=== PATIENT | male | born 1950 | race Caucasian/White ===

== ENCOUNTER 2019-02-16 06:47 | Inpatient (IN) | payer MEDICARE, BC ==
[2019-02-09 15:15] LABS: BASOPHILS % (AUTO) 0.4 % (0-1); EOSINOPHILS # (AUTO) 0.2 X10'3 (0-0.9); EOSINOPHILS % (AUTO) 2.1 % (0-6); LYMPHOCYTES # (AUTO) 2.3 X10'3 (1.1-4.8); LYMPHOCYTES % (AUTO) 28.5 % (21-51); MEAN CORPUSCULAR HEMOGLOBIN 31.4 PG (27.0-31.0); MEAN CORPUSCULAR HGB CONC 34.7 g/dL (33.0-36.5); MEAN CORPUSCULAR VOLUME 90.5 FL (78-98); MEAN PLATELET VOLUME 8.5 FL (7.4-10.4); MONOCYTES # (AUTO) 0.8 X10'3 (0-0.9); MONOCYTES % (AUTO) 9.5 % (2-12); NEUTROPHILS # (AUTO) 4.8 X10'3 (1.8-7.7); NEUTROPHILS % (AUTO) 59.5 % (42-75); PRE OP HEMATOCRIT 45.8 % (42.0-52.0); PRE OP HEMOGLOBIN 15.9 g/dL (14.0-17.9); PRE OP PLATELET COUNT 275 X10'3 (140-440); RED BLOOD COUNT 5.06 X10'6 (4.70-6.10); RED CELL DISTRIBUTION WIDTH 12.9 % (11.5-14.5)
[2019-02-09 15:29] LABS: PRE OP PROTIME 10.1 SECONDS (9.0-12.0)
[2019-02-09 15:36] LABS: ALBUMIN 4.2 G/DL (3.4-5.0); ALBUMIN/GLOBULIN RATIO 1.1 (1.1-1.5); ALKALINE PHOSPHATASE 72 IU/L (46-116); BLOOD UREA NITROGEN 21 MG/DL (7-18); BUN/CREATININE RATIO 19.3 (5.4-32.0); CHLORIDE 101 MMOL/L (99-107); CREATININE 1.09 MG/DL (0.60-1.10); PRE OP ALT 29 U/L (30-65); PRE OP ANION GAP 9 (8-16); PRE OP AST 15 U/L (10-37); PRE OP BILIRUB, TOTAL 0.5 MG/DL (0.0-1.0); PRE OP GLUCOSE 98 MG/DL (70-104); PRE OP POTASSIUM 3.8 MMOL/L (3.4-5.1); PRE OP SODIUM 139 MMOL/L (135-145); TOTAL CARBON DIOXIDE 28.8 MMOL/L (24-32); TOTAL PROTEIN 7.9 G/DL (6.4-8.2); eGFR 68 ML/MIN
[2019-02-16] VITALS (20 sets, daily range): BP systolic 119–173; BP diastolic 60–98
[~2019-02-16] VITALS: Ht 177.8 cm; Wt 107.6 kg
[~2019-02-16 06:47] MED LIST: HYDROcodone/acetaminophen 10/325mg tab PO PRN; HYDROmorphone 1 mg/ml syringe IV PRN; HYDROmorphone inj. 0.5 MG/0.5 ML DISP.SYRIN IV PRN; LOSA1TAB41 PO; acetaminophen 325mg tablet PO ONE; acetaminophen 325mg tablet PO PRN; bisacodyl 10mg suppository rectal RC PRN; cefazolin/dext.iso 2gm/50ml 50 ML IV ONE; celeCOXIB 100mg capsule PO ONE; diphenhydrAMINE 25mg capsule PO PRN; famotidine 20mg tablet PO ONE; gabapentin 300mg capsule PO ONE; magnesium hydroxide 30ml (MOM) UD suspension PO PRN; metoclopramide 5 mg/ml inj IV ONE; ondansetron/PF 4mg/2ml inj IV PRN; oxyCODONE SR 10mg (sust. release) tab -2 tabs (20mg) PO ONE; ringers solution, lacted 1,000 ML IV ONE; tranexamic acid inj. 1,000 MG in normal saline 100 ML IV ONE; vancomycin inj 1,500 MG in normal saline 300ml IV soln IV ONE
[2019-02-16] MEDS ORDERED: losartan 50mg tablet PO SCH (08:00)
[2019-02-16] MEDS: ascorbic acid 500mg tablet PO SCH ×2 (08:00→20:12)
[2019-02-16] MEDS: multivitamins, therapeutics tablet PO SCH (08:00)
[2019-02-16] MEDS: gabapentin 300mg capsule PO SCH ×3 (08:00→20:11)
[2019-02-16] MEDS: aspirin 325mg tablet PO SCH (08:30)
[2019-02-16] MEDS ORDERED: ketorolac trometh. 30mg/ml inj. ONE (09:16)
[2019-02-16] MEDS ORDERED: epiNEPHrine 1 mg/ml inj ONE (09:17)
[2019-02-16] MEDS ORDERED: ROPIVAcaine 0.5% (5mg/ml) 30ml vial ONE (09:17)
[2019-02-16] MEDS ORDERED: vancomycin 1,000mg inj ONE (09:17)
[2019-02-16] MEDS ORDERED: cloNIDine hcl/PF 100mcg/ml inj ONE (09:17)
[2019-02-16] MEDS ORDERED: morphine /PF 1mg/ml 10ml inj. ONE (09:56)
[2019-02-16] MEDS ORDERED: MIDAZolam 5mg/5ml vial ONE (09:57)
[2019-02-16] MEDS ORDERED: fentaNYL/PF 50MCG/1 ML 2ML syringe ONE (09:57)
[2019-02-16] MEDS ORDERED: morphine 4 MG/ML inj SYRINge IV PRN ×2 (11:10)
[2019-02-16] MEDS ORDERED: ringers solution, lacted 1,000 ML IV SCH (11:10)
[2019-02-16] MEDS ORDERED: ondansetron/PF 4mg/2ml inj IV PRN ×2 (11:10)
[2019-02-16] MEDS ORDERED: proCHLORperazine 10 MG/2 ml inj IV PRN (11:10)
[2019-02-16] MEDS ORDERED: meperidine/PF 25mg/ml syringe IV PRN ×3 (11:10)
[2019-02-16] MEDS ORDERED: diphenhydrAMINE 50 mg/ml inj IV PRN (11:10)
[2019-02-16] MEDS ORDERED: naloxone 2mg/2ml inj 2 MG in normal saline 500ml IV soln 500 ML IV PRN (11:10)
[2019-02-16] MEDS ORDERED: propofol inj 20 ML IV ONE (11:21)
[2019-02-16] MEDS ORDERED: glycopyrrolate 0.2mg/ml inj ONE (11:21)
[2019-02-16] MEDS ORDERED: ePHEDrine 50MG/ML INJ. ONE (11:21)
[2019-02-16] MEDS ORDERED: LIDOcaine 1%/PF 5ML 10 MG/ML VIAL ONE (11:21)
--- NOTE | 2019-02-16 11:35 | NUR ---
ADMITTED TO PACU FROM OR ACCOMPANIED BY ANESTHESIA. INITIAL PHYSICAL ASSESSMENT DONE AND RECORDED. REPORT RECEIVED FROM ANESTHESIA.
--- NOTE | 2019-02-16 12:45 | NUR ---
PACU DISCHARGE CRITERIA MET, REPORT GIVEN TO FLOOR. DENIES PAIN OR DISCOMFORT, TRANSFERRED TO ROOM IN STABLE GOOD CONDITION.
[2019-02-16] MEDS: potassium cl 20mEq in 1/2 NS 1,000 ML IV SCH ×2 (14:44→17:12)
[2019-02-16] MEDS ORDERED: TRANEXAMIC ACID IV ONE (17:00)
[2019-02-16] MEDS ORDERED: NORMAL SALINE IV ONE (17:00)
[2019-02-16] MEDS: cefazolin/dext.iso 2gm/100ml 100 ML IV SCH (17:11)
--- NOTE | 2019-02-16 18:30 | NUR ---
Problems reprioritized. Patient report given, questions answered & plan of care reviewed with Sherron WRIGHT.
--- NOTE | 2019-02-16 18:40 | NUR ---
Patient in room ORTHO 4008. I have received report from ADRIANA ROCA and had the opportunity to ask questions and assume patient care.
[2019-02-16] MEDS: sennosides 8.6mg tablet PO SCH (20:11)
[2019-02-17] VITALS (7 sets, daily range): BP systolic 123–134; BP diastolic 55–71
[2019-02-17] MEDS: cefazolin/dext.iso 2gm/100ml 100 ML IV SCH (00:29)
[2019-02-17] MEDS: potassium cl 20mEq in 1/2 NS 1,000 ML IV SCH ×4 (05:06→21:19)
[2019-02-17] MEDS: HYDROcodone/acetaminophen 10/325mg tab PO PRN ×3 (05:10→19:58)
[2019-02-17 05:47] LABS: ANION GAP 7 (8-16); CHLORIDE 102 MMOL/L (99-107); POTASSIUM 4.1 MMOL/L (3.5-5.1); SODIUM 135 MMOL/L (135-145); TOTAL CARBON DIOXIDE 26.4 MMOL/L (24-32)
[2019-02-17 06:05] LABS: BASOPHILS % (AUTO) 0.2 % (0-1); EOSINOPHILS # (AUTO) 0.3 X10'3 (0-0.9); EOSINOPHILS % (AUTO) 3.3 % (0-6); HEMATOCRIT 38.9 % (42.0-52.0); HEMOGLOBIN 13.5 g/dl (14.0-17.9); LYMPHOCYTES # (AUTO) 1.6 X10'3 (1.1-4.8); LYMPHOCYTES % (AUTO) 18.9 % (21-51); MEAN CORPUSCULAR HEMOGLOBIN 31.6 PG (27.0-31.0); MEAN CORPUSCULAR HGB CONC 34.8 g/dL (33.0-36.5); MEAN CORPUSCULAR VOLUME 90.7 FL (78-98); MEAN PLATELET VOLUME 8.4 FL (7.4-10.4); MONOCYTES # (AUTO) 0.8 X10'3 (0-0.9); MONOCYTES % (AUTO) 9.8 % (2-12); NEUTROPHILS # (AUTO) 5.7 X10'3 (1.8-7.7); NEUTROPHILS % (AUTO) 67.8 % (42-75); PLATELET COUNT 192 X10'3 (140-440); RED BLOOD COUNT 4.29 X10'6 (4.70-6.10); RED CELL DISTRIBUTION WIDTH 12.8 % (11.5-14.5); WHITE BLOOD COUNT 8.5 X10'3 (4.5-11.0)
--- NOTE | 2019-02-17 06:24 | NUR ---
Problems reprioritized. Patient report given, questions answered & plan of care reviewed with ADRIANA MARRERO.
[2019-02-17] MEDS ORDERED: HYDROchlorothiazide 12.5mg capsule PO SCH (08:00)
[2019-02-17] MEDS: HYDROchlorothiazide 12.5mg capsule PO SCH (09:04)
[2019-02-17] MEDS: losartan 50mg tablet PO SCH (09:04)
[2019-02-17] MEDS: aspirin 325mg tablet PO SCH (09:04)
[2019-02-17] MEDS: gabapentin 300mg capsule PO SCH ×3 (09:04→19:53)
[2019-02-17] MEDS: ascorbic acid 500mg tablet PO SCH ×2 (09:05→19:53)
[2019-02-17] MEDS: multivitamins, therapeutics tablet PO SCH (09:05)
[2019-02-17] MEDS ORDERED: tamsulosin 0.4mg capsule PO SCH (10:45)
--- NOTE | 2019-02-17 11:56 | NUR ---
Student documentation: I have reviewed all interventions, assessments performed and documented [facility] Student Medication Administration: For this medication-pass time frame, all medication were reviewed, dispensed, administered and documented per hospital policy [facility] [place]
[2019-02-17] MEDS: sennosides 8.6mg tablet PO SCH (19:53)
[2019-02-18] MEDS: HYDROcodone/acetaminophen 10/325mg tab PO PRN ×2 (04:24→11:13)
[2019-02-18 06:00] VITALS: BP 154/70
[2019-02-18 06:26] LABS: BASOPHILS # (AUTO) 0.1 X10'3 (0-0.2); BASOPHILS % (AUTO) 0.6 % (0-1); EOSINOPHILS # (AUTO) 0.3 X10'3 (0-0.9); EOSINOPHILS % (AUTO) 2.5 % (0-6); HEMATOCRIT 38.3 % (42.0-52.0); HEMOGLOBIN 13.3 g/dl (14.0-17.9); LYMPHOCYTES # (AUTO) 1.5 X10'3 (1.1-4.8); LYMPHOCYTES % (AUTO) 13.1 % (21-51); MEAN CORPUSCULAR HEMOGLOBIN 31.3 PG (27.0-31.0); MEAN CORPUSCULAR HGB CONC 34.8 g/dL (33.0-36.5); MEAN PLATELET VOLUME 7.9 FL (7.4-10.4); MONOCYTES # (AUTO) 1.1 X10'3 (0-0.9); MONOCYTES % (AUTO) 10.1 % (2-12); NEUTROPHILS # (AUTO) 8.3 X10'3 (1.8-7.7); NEUTROPHILS % (AUTO) 73.7 % (42-75); PLATELET COUNT 183 X10'3 (140-440); RED BLOOD COUNT 4.26 X10'6 (4.70-6.10); RED CELL DISTRIBUTION WIDTH 12.5 % (11.5-14.5); WHITE BLOOD COUNT 11.3 X10'3 (4.5-11.0)
--- NOTE | 2019-02-18 06:42 | NUR ---
mallory cath dced , cath tip intact , urinal at bedside 200 cc urine obtained from mallory Addendum: 02/18/19 at 0643 by Khushboo Brown RN Amended: Links added.
--- NOTE | 2019-02-18 07:40 | NUR ---
pt void 150ml will continue to monitor Addendum: 02/18/19 at 0741 by Ada Walker RN Amended: Links added.
[2019-02-18] MEDS: gabapentin 300mg capsule PO SCH (08:22)
[2019-02-18] MEDS: HYDROchlorothiazide 12.5mg capsule PO SCH (08:22)
[2019-02-18] MEDS: losartan 50mg tablet PO SCH (08:22)
[2019-02-18] MEDS: aspirin 325mg tablet PO SCH (08:23)
[2019-02-18] MEDS: multivitamins, therapeutics tablet PO SCH (08:23)
[2019-02-18] MEDS: ascorbic acid 500mg tablet PO SCH (08:23)
[2019-02-18 10:51] VITALS: BP 112/56
== END 2019-02-18 13:00 | disposition home or self-care (01) | DRG 470 ==
LOC: PAS IN 06:47 → ORTHO 4S 13:00 → EDSTATUS 13:30
PROVIDERS: ADMIT Orthopaedic Surgery; ATTEND Orthopaedic Surgery
PROC: 0SRB06Z Replacement of Left Hip Joint with Oxidized Zirconium on Polyethylene Synthetic Substitute, Open Approach (ICD-10-PCS; principal; 2019-02-16 09:55)
DX: M16.12 Unilateral primary osteoarthritis, left hip (principal); D62 Acute posthemorrhagic anemia; E66.9 Obesity, unspecified; I10 Essential (primary) hypertension; N40.1 Benign prostatic hyperplasia with lower urinary tract symptoms; Z79.82 Long term (current) use of aspirin; Z68.34 Body mass index [BMI] 34.0-34.9, adult; R33.9 Retention of urine, unspecified; Z79.899 Other long term (current) drug therapy
CPT/HCPCS: 36415; 71046; 72170; 80051; 80053; 82948; 85025; 85610; 85730; 86885; 86900; 86901; 87081; 97110; 97116; 97162; 97530; A4615; A7000; C1758; C1776; G0378; J0171; J0735; J1885; J2250; J2270; J2405; J2704; J2765; J2795; J3010; J3370; J3480; J3490; J7120